=== PATIENT | female | born 1985 | race Caucasian/White ===

== ENCOUNTER 2016-11-12 12:18 | Emergency (ER) | payer MEDICAID ==
[~2016-11-12] VITALS: Ht 157.5 cm; Wt 45.3 kg
[2016-11-12] MEDS ORDERED: ONDANSETRON 2MG/ML, 2ML IVPush ONE (14:00)
[2016-11-12] MEDS ORDERED: KETOROLAC 30 MG/1 ML IVPush ONE (14:00)
[2016-11-12] MEDS ORDERED: MORPHINE SULFATE 4 MG/ML, 1ML IVPush PRN (14:00)
[2016-11-12] MEDS ORDERED: SODIUM CHLORIDE FLUSH 10ML SYR IVF ONE (14:00)
[2016-11-12] MEDS ORDERED: SODIUM CHLORIDE 0.9% 1,000ML IVBOLUS ONE (14:00)
[2016-11-12] MEDS ORDERED: KETOROLAC 30 MG/1 ML ONE (14:02)
[2016-11-12] MEDS ORDERED: ONDANSETRON 2MG/ML, 2ML ONE (14:02)
[2016-11-12] MEDS ORDERED: MORPHINE SULFATE 4 MG/ML, 1ML ONE (14:03)
[2016-11-12 14:20] LABS: BLOOD UREA NITROGEN 8 mg/dL (7-18)
[2016-11-12 14:35] LABS: HCG UR OBC PASS
[2016-11-12] MEDS ORDERED: OMNIPAQUE 350 MG/ML, 100ML BOTTLE ONE (15:17)
[2016-11-12 16:56] VITALS: BP 101/57
== END 2016-11-12 16:59 | disposition home or self-care (01) ==
LOC: ED 14:14
DX: R10.31 Right lower quadrant pain (principal); R11.0 Nausea
CPT/HCPCS: 36415; 74177; 80048; 81003; 81025; 82040; 85025; 96361; 96374; 96375; 99285; J1885; J2405; J7030; Q9967

== ENCOUNTER 2016-12-08 05:48 | Day surgery (SDC) | payer MEDICAID ==
[~2016-12-08] VITALS: Ht 157.5 cm; Wt 46.0 kg
[2016-12-08 06:33] LABS: HCG UR OBC PASS
[2016-12-08 06:37] VITALS: BP 112/76
[2016-12-08] MEDS ORDERED: BUPIVACAINE/PF 0.25% ONE (06:44)
[2016-12-08] MEDS ORDERED: SILVER NITRATE STICK TP ONE (06:44)
[2016-12-08] MEDS ORDERED: EPINEPHRINE 1 MG/ML, 1ML ONE (06:44)
[2016-12-08] MEDS ORDERED: FLUORESCEIN SODIUM 500 MG/5 ML ONE (07:09)
[2016-12-08] MEDS ORDERED: MIDAZOLAM 1 MG/ML, 2ML ONE (07:15)
[2016-12-08] MEDS ORDERED: FENTANYL PF 250 MCG/5ML ONE (07:16)
[2016-12-08 07:21] LABS: HEMATOCRIT 37.4 % (34.6-47.8); HEMOGLOBIN 12.6 g/dL (11.7-16.4); WHITE BLOOD COUNT 9.6 x10^3/uL (3.4-10)
[2016-12-08] MEDS ORDERED: LACTATED RINGERS 1,000 ML IV SCH ×2 (07:30→11:41)
[2016-12-08] MEDS ORDERED: ROCURONIUM 10 MG/ML ONE ×6 (07:30)
[2016-12-08] MEDS ORDERED: NEOSTIGMINE 1 MG/ML, 10ML ONE (07:30)
[2016-12-08] MEDS ORDERED: ONDANSETRON 2MG/ML, 2ML ONE (07:30)
[2016-12-08] MEDS ORDERED: LABETALOL 5MG/ML 40ML VIAL ONE (07:30)
[2016-12-08] MEDS ORDERED: GLYCOPYRROLATE 0.2MG/1ML ONE (07:30)
[2016-12-08] MEDS ORDERED: SUCCINYLCHOLINE 20 MG/ML, 10ML ONE (07:30)
[2016-12-08] MEDS ORDERED: KETOROLAC 30 MG/1 ML ONE (07:30)
[2016-12-08] MEDS ORDERED: CEFAZOLIN 1,000 MG ONE (07:30)
[2016-12-08] MEDS ORDERED: PROPOFOL 10 MG/ML, 20ML ONE (07:30)
[2016-12-08] MEDS ORDERED: DEXAMETHASONE 4 MG/ML, 1ML ONE (07:30)
[2016-12-08] MEDS ORDERED: ALBUTEROL SULFATE 2.5 MG/3 ML NPPB PRN (09:00)
[2016-12-08] MEDS ORDERED: MIDAZOLAM 1 MG/ML, 2ML IV PRN (09:00)
[2016-12-08] MEDS ORDERED: METOPROLOL 1 MG/ML, 5ML IV PRN (09:00)
[2016-12-08] MEDS ORDERED: EPHEDRINE 50 MG/ML, 1ML IVPush PRN (09:00)
[2016-12-08] MEDS ORDERED: LABETALOL 5MG/ML, 20ML IV PRN (09:00)
[2016-12-08] MEDS ORDERED: HYDROmorphone 1 MG/ML, 1ML IV PRN (09:00)
[2016-12-08] MEDS ORDERED: ACETAMINOPHEN 325 MG TABLET PO PRN (09:00)
[2016-12-08] MEDS ORDERED: ONDANSETRON 2MG/ML, 2ML IVPush PRN (09:00)
[2016-12-08] MEDS ORDERED: METOCLOPRAMIDE 5 MG/ML, 2ML IV PRN (09:00)
[2016-12-08] MEDS ORDERED: HYDROcodone/APAP 7.5-325MG/15ML UDC PO PRN (09:00)
[2016-12-08] MEDS ORDERED: KETOROLAC 30 MG/1 ML IV PRN (09:00)
[2016-12-08] MEDS ORDERED: FENTANYL PF 100 MCG/2ML ONE ×2 (09:47→10:08)
[2016-12-08] MEDS ORDERED: MEPERIDINE/PF 25MG/0.5ML ONE (09:48)
[2016-12-08] MEDS: FENTANYL PF 100 MCG/2ML IV PRN ×3 (09:53→10:24)
[2016-12-08] MEDS ORDERED: MEPERIDINE/PF 25MG/0.5ML IVPush PRN (10:00)
[2016-12-08] MEDS ORDERED: OXYcodone 5 MG/5 ML ORAL.SOL UDC PO PRN (10:00)
[2016-12-08] MEDS ORDERED: OXYcodone 5 MG/5 ML ORAL.SOL UDC ONE (10:08)
== END 2016-12-08 12:25 | disposition home or self-care (01) ==
LOC: OUT 05:48
PROVIDERS: ATTEND Obstetrics & Gynecology
DX: N94.6 Dysmenorrhea, unspecified (principal); N92.0 Excessive and frequent menstruation with regular cycle; N84.0 Polyp of corpus uteri; N83.202 Unspecified ovarian cyst, left side; N80.9 Endometriosis, unspecified; F17.200 Nicotine dependence, unspecified, uncomplicated; Z88.1 Allergy status to other antibiotic agents; Z88.5 Allergy status to narcotic agent; Z98.890 Other specified postprocedural states
CPT/HCPCS: 36415; 58563; 58661; 58662; 81025; 85025; 88305; J0171; J0330; J0690; J1100; J1885; J2175; J2250; J2405; J2704; J2710; J3010; J3490; J7120